=== PATIENT | male | born 1945 | race African-American/Black ===

== ENCOUNTER 2022-05-29 13:30 | Emergency (ER) | payer MEDICARE ==
[~2022-05-29] VITALS: Ht 190.5 cm; Wt 104.3 kg
[2022-05-29 13:54] VITALS: BP 157/76
--- NOTE | 2022-05-29 14:15 | NUR ---
PATIENT PRESENTS TO ED WITH RAPID HEART RATE BIBA [facility]. PT STATES HE WAS FEELING WEAK AND WAS NOT ABLE TO WALK. DENIES N/V/D; SKIN IS PINK/WARM/DRY; AAOX4 WITH UNSTEADY GAIT; LUNGS CLEAR BL; HR EVEN AND REGULAR, EKG WAS DONE BY NEHEMIAS, RESULTS SHOW A FLUTTER; PT DENIES ANY FEVER, CP, SOB, OR COUGH AT THIS TIME; PATIENT STATES PAIN OF 0/10 AT THIS TIME; VSS; PATIENT POSITIONED FOR COMFORT; HOB ELEVATED; BEDRAILS UP X2; BED DOWN. ER MD MADE AWARE OF PT STATUS. HS: HTN, HYPERLIPIDEMIA ALLERGIES: NONE MEDS: DENIES NOTED BY DIANA RN STUDENT
--- NOTE | 2022-05-29 14:18 | NUR ---
DR IGNACIO AT BEDSIDE FOR EVAL
[2022-05-29] MEDS ORDERED: NACL 0.9% 1,000 ML IV ONE (14:20)
[2022-05-29 15:20] LABS: BASOPHILS # (AUTO) 0.1 K/uL (0.00-0.22); BASOPHILS % (AUTO) 0.8 % (0.0-2.0); EOSINOPHILS # (AUTO) 0.2 K/uL (0-0.4); EOSINOPHILS % (AUTO) 2.1 % (0.0-4.0); HEMATOCRIT 40.6 % (36-52); HEMOGLOBIN 13.4 g/dL (12.0-18.0); LYMPHOCYTES # (AUTO) 1.8 K/uL (2.0-11.5); LYMPHOCYTES % (AUTO) 23.1 % (20.5-51.1); MEAN CORPUSCULAR HEMOGLOBIN 31 pg (27-31); MEAN CORPUSCULAR HGB CONC 33 g/dL (33-37); MEAN CORPUSCULAR VOLUME 94.6 fL (80-94); MONOCYTES % (AUTO) 13.3 % (1.7-9.3); NEUTROPHILS # (AUTO) 4.6 K/uL (1.8-7.7); NEUTROPHILS % (AUTO) 60.7 % (42.2-75.2); PLATELET COUNT (AUTO) 143 K/uL (140-450); RED BLOOD CELL COUNT(AUTO) 4.29 MIL/uL (4.20-6.10); RED CELL DISTRIBUTION WIDTH 14.5 % (11.6-13.7); WHITE BLOOD COUNT (AUTO) 7.6 K/uL (4.8-10.8)
[2022-05-29 15:29] LABS: C-REACTIVE PROTEIN QUANT 3.6 mg/dL (0.0-0.9)
[2022-05-29 15:33] LABS: ALBUMIN 3.4 g/dL (3.4-5.0); ANION GAP 12.2 (8-16); ASPARTATE AMINOTRANSFERASE 18 U/L (15-37); CARBON DIOXIDE 27.4 mmol/L (21-32); CHLORIDE 107 mmol/L (98-107); CREATININE 1.5 mg/dL (0.6-1.3); GLUCOSE 94 mg/dL (74-106); POTASSIUM 4.6 mmol/L (3.5-5.1); SODIUM SERUM 142 mmol/L (136-145); TOTAL BILIRUBIN 1.9 mg/dL (0.0-1.0); UREA NITROGEN, BLOOD 17 mg/dL (7-18)
[2022-05-29 15:47] LABS: MAGNESIUM 1.8 mg/dL (1.8-2.4); PHOSPHORUS 3.6 mg/dL (2.5-4.9); THYROID STIMULATING HORMONE 2.24 uIU/mL (0.34-3.74)
[2022-05-29 16:59] LABS: BILIRUBIN,URINE NEGATIVE (NEGATIVE); BLOOD, URINE 1+ (NEGATIVE); COLOR,URINE YELLOW (YELLOW); LEUKOCYTE ESTERASE ,URINE 1+ (NEGATIVE); NITRITE, URINE POSITIVE (NEGATIVE); PH,URINE 5.5 (5.0-9.0); UGLUCOSE NEGATIVE (NEGATIVE)
[2022-05-29 17:05] LABS: APPEARANCE,URINE HAZY (CLEAR)
[2022-05-29 17:18] LABS: BARBITURATE, URINE NEGATIVE ng/ml (NEG <=200); BENZODIAZEPINE, URINE NEGATIVE ng/mL (NEG <=200); CANNABINOID, URINE NEGATIVE ng/mL (NEG <=50); COCAINE, URINE NEGATIVE ng/mL (NEG <=300); OPIATE, URINE NEGATIVE ng/mL (NEG <=2000); PHENCYCLIDINE SCREEN,URINE NEGATIVE ng/mL (NEG <=25); RBC,URINE 0-5 /HPF (0-5); WBC,URINE 20-60 /HPF (0-5)
--- NOTE | 2022-05-29 18:18 | NUR ---
Patient appears to be resting comfortably in bed. Respirations even and unlabored. Ermd made aware of low pulse at 38 atrial flutter.
--- NOTE | 2022-05-29 19:50 | NUR ---
ASSUMED CARE AT THIS TIME. SPOKE WITH ON PHONE WITH OK BY PT. (HIRA GO) [phone]. UPDATED ON POC WITH FULL RETURNED VERBAL UNDERSTANDING. VSS. AWAITING MEMPHIS FOR PLACEMENT/ADMISSION OF PT.
--- NOTE | 2022-05-29 21:57 | NUR ---
PT CLEANED AT THIS TIME HE WAS INCONTINENT OF URINE. PLACED BRIEF ON PT AT THIS TIME. PT IN POSITION OF COMFORT. AWAITING CROSS FORK FOR POSSIBLE TRANSFER TO [facility]
--- NOTE | 2022-05-29 22:30 | NUR ---
PT RESTING, NO S/S OF DISTRESS NOTED. PT IN POSITION OF COMFORT. VSS. AWAITING VERDUZCO. WILL CONTINUE TO MONITOR PAIN/COMFORT.
[2022-05-29] MEDS ORDERED: ACETAMINOPHEN EXTRA STRENGTH 500 MG TAB PO ONE (22:50)
--- NOTE | 2022-05-30 00:23 | NUR ---
REPORT CALLED TO SINDHU NOLASCO WITH FULL RETURNED VERBAL UNDERSTANDING. PT GOING TO [facility] ROOM [id number]. [facility] HERE TO TRANSPORT PT.
--- NOTE | 2022-05-30 00:28 | NUR ---
PT WITH [facility] FOR TRANSPORT TO [facility].
[2022-05-30 00:35] VITALS: BP 172/56
== END 2022-05-30 00:35 | disposition short-term general hospital (02) ==
LOC: MED 13:30
DX: I48.92 Unspecified atrial flutter (principal); Z20.822 Contact with and (suspected) exposure to COVID-19; N17.9 Acute kidney failure, unspecified; I82.403 Acute embolism and thrombosis of unspecified deep veins of lower extremity, bilateral; I10 Essential (primary) hypertension; Z79.899 Other long term (current) drug therapy
CPT/HCPCS: 36415; 70450; 71045; 80053; 80305; 81001; 83735; 83880; 84100; 84443; 84484; 85025; 85651; 86140; 87086; 87426; 96360; 99285; J7030